=== PATIENT | female | born 1985 | race African-American/Black ===

== ENCOUNTER 2016-11-29 00:47 | Observation (INO) | payer BC ==
[~2016-11-29] VITALS: Ht 167.6 cm; Wt 78.7 kg
[~2016-11-29 00:47] MED LIST: ADAPALENE45 GM TP; ATARAX10 MG PO; NAPROSYN500 MG PO; ORTHO TRI-CY1 TABLE1 PO
[2016-11-29 01:14] LABS: HEMATOCRIT 35.2 % (36.0-46.0); MCH 26.4 PG (29.0-34.0); MCHC 31.8 G/DL (30.0-36.0); MCV 82.8 FL (83-99); MEAN PLAT.VOLUME 9.7 uM^3 (9.5-12.4); PLATELET COUNT 281 K/uL (156-360); RBC DIS.WIDTH-SD 48.7 % (39-53); RED BLOOD COUNT 4.25 M/uL (3.80-5.20); WHITE BLOOD COUNT 9.2 K/uL (4.1-10.2)
[2016-11-29 01:36] LABS: CHLORIDE 108 mEq/L (99-109); POTASSIUM 3.9 mEq/L (3.7-5.4); SODIUM 141 mEq/L (136-147)
[2016-11-29 01:38] LABS: GLUCOSE 94 mg/dL (70-99)
[2016-11-29 01:40] LABS: ANION GAP 11 MEQ/L (2-14)
[2016-11-29 01:42] LABS: GFR ESTIMATE (CALCULATED) > 59 mL/min/
[2016-11-29 01:43] LABS: UREA NITROGEN (BUN) 13 mg/dL (9-23)
[2016-11-29 02:01] LABS: QUANTITATIVE HCG < 4.0 MIU/ML
[2016-11-29 04:43] LABS: TROP-I INTERPRETATION NEGATIVE; TROPONIN-I < 0.01 ng/mL (0.0-0.30)
[2016-11-29] MEDS ORDERED: ACYCLOVIR400 MG PO (08:16)
[2016-11-29] MEDS ORDERED: ALPRAZOLAM1 MG PO (08:16)
[2016-11-29] MEDS ORDERED: L-THEANINE PO (08:17)
[2016-11-29 09:09] VITALS: BP 137/72
[2016-11-29 09:43] LABS: Estimated Average Glucose 120 mg/dL (70-123); HEMOGLOBIN A1c (GLYCOHEMOGLOB) 5.8 % HGB (Below 5.7)
[2016-11-29 09:54] LABS: HDL CHOLESTEROL 38 MG/DL (Desirable>=50); LDL CHOLESTEROL 103 mg/dL (Desirable<100); NON-HDL CHOLESTEROL 119 mg/dL (Desirable<160); TOTAL CHOLESTEROL 157 mg/dL (Desirable<200); TRIGLYCERIDES 81 MG/DL (Normal: <150)
[2016-11-29 10:28] LABS: FERRITIN 5 NG/ML (10-291)
[2016-11-29 11:39] VITALS: BP 135/80
[2016-11-29 14:51] LABS: TROP-I INTERPRETATION NEGATIVE; TROPONIN-I < 0.01 ng/mL (0.0-0.30)
[2016-11-29 15:32] VITALS: BP 135/78
[2016-11-29 20:30] VITALS: BP 122/80
[2016-11-29 21:30] LABS: TROP-I INTERPRETATION NEGATIVE; TROPONIN-I < 0.01 ng/mL (0.0-0.30)
[2016-11-30 00:19] VITALS: BP 136/78
[2016-11-30 04:24] VITALS: BP 138/82
[2016-11-30 06:50] LABS: ADD MIUA? NO; BILIRUBIN NEGATIVE; BLOOD NEGATIVE; COLOR YELLOW ((YELLOW)); GLUCOSE (STRIP) NEGATIVE; KETONES NEGATIVE; LEUKOCYTES NEGATIVE; NITRITE NEGATIVE; PROTEIN (STRIP) NEGATIVE; SPECIFIC GRAVITY 1.013 (1.000-1.030); UCUL ADDED? NO; UROBILINOGEN 0.2 MG/DL (0.2-1.0)
[2016-11-30 07:58] LABS: AMPHETAMINES QUANT VALUE 0 NG/ML; BENZODIAZEPINES, URINE SCREEN POSITIVE (200 ng/mL); MARIJUANA QUANT VALUE 0 NG/ML; OPIATES QUANTITATIVE VALUE 0 NG/ML; PHENCYCLIDINE QUANT VALUE 0 NG/ML
[2016-11-30] MEDS ORDERED: ASPIR-LOW81 MG PO (08:11)
[2016-11-30] MEDS ORDERED: IRON325 MG PO (08:16)
[2016-11-30 08:39] VITALS: BP 143/87
== END 2016-11-30 09:23 | disposition home or self-care (01) ==
LOC: EME 00:47 → EDOF 07:54 → 5WEST 09:00
PROVIDERS: Internal Medicine; Physician Assistant Medical
DX: R07.89 Other chest pain (principal); G43.909 Migraine, unspecified, not intractable, without status migrainosus; M79.7 Fibromyalgia; M54.2 Cervicalgia; R11.0 Nausea; D50.9 Iron deficiency anemia, unspecified; F17.210 Nicotine dependence, cigarettes, uncomplicated; F41.9 Anxiety disorder, unspecified
CPT/HCPCS: 70450; 71020; 80048; 80061; 80306 90; 81003; 82728; 83036; 84443; 84484; 84702; 85027; 93005; 99281; 99285; G0378; J1885; J2270; J2405

== ENCOUNTER 2017-08-23 10:30 | Emergency (ER) | payer BC ==
[~2017-08-23] VITALS: Ht 167.6 cm; Wt 75.9 kg
[~2017-08-23 10:30] MED LIST changes: +ACYCLOVIR400 MG PO; +ALPRAZOLAM1 MG PO; +ASPIR-LOW81 MG PO; +IRON325 MG PO; +L-THEANINE PO
[2017-08-23 11:14] LABS: HEMATOCRIT 38.7 % (36.0-46.0); HEMOGLOBIN 12.7 G/DL (11.9-15.5); MCH 28.2 PG (29.0-34.0); MCHC 32.8 G/DL (30.0-36.0); MCV 85.8 FL (83-99); PLATELET COUNT 277 K/uL (156-360); RBC DIS.WIDTH-CV 14.9 % (11.8-14.6); RBC DIS.WIDTH-SD 46.9 % (39-53); RED BLOOD COUNT 4.51 M/uL (3.80-5.20); WHITE BLOOD COUNT 12.1 K/uL (4.1-10.2)
[2017-08-23 11:36] LABS: ALBUMIN 4.1 G/DL (3.2-4.8); CHLORIDE 105 MEQ/L (99-109); POTASSIUM 3.9 MEQ/L (3.7-5.4); SODIUM 139 MEQ/L (136-147); TOTAL BILIRUBIN 0.5 MG/DL (0.0-1.0)
[2017-08-23 11:38] LABS: APPEARANCE SL.HAZY ((CLEAR)); BILIRUBIN NEGATIVE; BLOOD NEGATIVE; COLOR YELLOW ((YELLOW)); GLUCOSE (STRIP) NEGATIVE; KETONES NEGATIVE; LEUKOCYTES TRACE; NITRITE NEGATIVE; PROTEIN (STRIP) NEGATIVE; SPECIFIC GRAVITY 1.024 (1.000-1.030)
[2017-08-23 11:42] LABS: ALKALINE PHOSPHATASE 51 IU/L (3-129); ALT (GPT) 26 IU/L (3-49); AST (GOT) 29 IU/L (2-34); CREATININE 0.8 MG/DL (0.6-1.3); GFR ESTIMATE (CALCULATED) > 59 mL/min/; GLUCOSE 101 mg/dL (70-99); UREA NITROGEN (BUN) 8 mg/dL (9-23)
[2017-08-23 11:45] LABS: QUANTITATIVE HCG < 4.0 MIU/ML
[2017-08-23 11:48] LABS: BACTERIA NONE SEEN /HPF; EPITHELIAL CELLS RARE /HPF; MUCUS TRACE /LPF; UCUL ADDED? YES; WHITE BLOOD CELLS 15-20 /HPF (0-5)
[2017-08-23] MEDS ORDERED: ALDACTONE100 MG PO (14:15)
[2017-08-23] MEDS ORDERED: [UNRECOGNIZED DRUG - OTHER] PO (14:18)
[2017-08-23 15:08] LABS: SOURCE SWAB
[2017-08-23] MEDS ORDERED: NORCO 5/3251 TABLET PO (16:21)
[2017-08-23] MEDS ORDERED: DOXYCYCLINE MO100 MG PO (16:21)
[2017-08-23 16:48] VITALS: BP 136/90
== END 2017-08-23 16:50 | disposition home or self-care (01) ==
LOC: EME 10:30
PROVIDERS: Physician Assistant
DX: N73.0 Acute parametritis and pelvic cellulitis (principal); N94.89 Other specified conditions associated with female genital organs and menstrual cycle; M79.7 Fibromyalgia; K21.9 Gastro-esophageal reflux disease without esophagitis; F41.9 Anxiety disorder, unspecified; F17.200 Nicotine dependence, unspecified, uncomplicated; Z88.8 Allergy status to other drugs, medicaments and biological substances
CPT/HCPCS: 76856; 80053; 81003; 84702; 85027; 87086; 87210; 87491; 87591; 99281; 99284; J0696; J1885; J2270